=== PATIENT | female | born 1960 | race Caucasian/White ===

== ENCOUNTER → 2016-07-18 | Outpatient (CLI) | payer BC ==
[~2016-07-18] MED LIST: Cymbalta PO; Ditropan PO; Glucophage PO; K-Dur PO; Lasix PO; Levothroid,Synthroid PO; Lipitor PO; Motrin PO; Percocet 5/325,Endoc PO; Theragran-M,Centrum, PO; Topamax PO; Toprol XL PO; Vitamin D PO; Zyloprim PO; celeBREX PO
== END | disposition home or self-care (01) ==
LOC: NUC 08:56
DX: E21.3 Hyperparathyroidism, unspecified (principal)
CPT/HCPCS: 78072; A9500

== ENCOUNTER → 2016-11-20 | Outpatient (CLI) | payer BC ==
[~2016-11-20] VITALS: Ht 168.9 cm; Wt 111.1 kg
[~2016-11-20] MED LIST changes: +GRALISE300 MG PO; +K-DUR20 MEQ PO; +LASIX40 MG PO; +LEVO-T112 MCG PO; +LIPITOR80 MG PO; +NEURONTIN300 MG PO; +ONE DAILY WOME1 EACH PO; +OXYCODONE HCL10 MG PO; +TOPROL XL50 MG PO; +VITAMIN D35000 UNIT PO; +VOLTAREN75 MG PO; +ZYLOPRIM300 MG PO
[2016-11-20 14:18] LABS: HEMATOCRIT 43.2 % (36.0-46.0); MCH 28.5 PG (29.0-34.0); MCHC 31.7 G/DL (30.0-36.0); MCV 89.8 FL (83-99); MEAN PLAT.VOLUME 11.6 uM^3 (9.5-12.4); PLATELET COUNT 280 K/uL (156-360); RBC DIS.WIDTH-CV 14.3 % (11.8-14.6); RBC DIS.WIDTH-SD 47.2 % (39-53); RED BLOOD COUNT 4.81 M/uL (3.80-5.20); WHITE BLOOD COUNT 8.1 K/uL (4.1-10.2)
[2016-11-20 14:29] LABS: PROTHROMBIN TIME 10.2 (9.2-11.2); PTT 26.8 (25-32)
== END | disposition home or self-care (01) ==
LOC: AMB 13:20
PROVIDERS: Internal Medicine Pulmonary Disease
DX: R91.8 Other nonspecific abnormal finding of lung field (principal); R59.0 Localized enlarged lymph nodes; R07.9 Chest pain, unspecified; I42.9 Cardiomyopathy, unspecified; E21.3 Hyperparathyroidism, unspecified; E55.9 Vitamin D deficiency, unspecified; E03.9 Hypothyroidism, unspecified; E78.5 Hyperlipidemia, unspecified; M51.36 Other intervertebral disc degeneration, lumbar region; E66.9 Obesity, unspecified; Z68.41 Body mass index [BMI] 40.0-44.9, adult; Z82.49 Family history of ischemic heart disease and other diseases of the circulatory system; Z83.3 Family history of diabetes mellitus
CPT/HCPCS: 71010; 76001; 85027; 85610; 85730; 87070; 87116; 87205; 87206; 87278; 88108; 88173; 88305; 94640; J1885; J2175; J2250; J2310; J2550; J3010

== ENCOUNTER → 2016-12-06 | Outpatient (CLI) | payer BC ==
[~2016-12-06] MED LIST changes: +TOLTERODINE TART4 MG PO
== END | disposition home or self-care (01) ==
LOC: OPR 11:57 → EDSTATUS 12:00
PROC: 0BBC3ZX Excision of Right Upper Lung Lobe, Percutaneous Approach, Diagnostic (ICD-10-PCS; principal; 2016-12-06)
DX: J84.10 Pulmonary fibrosis, unspecified (principal); D86.9 Sarcoidosis, unspecified; I42.9 Cardiomyopathy, unspecified; E21.3 Hyperparathyroidism, unspecified; E55.9 Vitamin D deficiency, unspecified; E03.9 Hypothyroidism, unspecified; E78.5 Hyperlipidemia, unspecified; M51.36 Other intervertebral disc degeneration, lumbar region; Z82.49 Family history of ischemic heart disease and other diseases of the circulatory system; Z83.3 Family history of diabetes mellitus
CPT/HCPCS: 71010; 77012; 88305; 88312; J3010